=== PATIENT | male | born 1990 | race American Indian/Alaskan Native ===

== ENCOUNTER 2023-10-07 20:25 | Emergency (ER) | payer SELFPAY ==
[2023-10-07 20:39] LABS: BASOPHILS ABSOLUTE AUTO 0.1 K/mm3 (0.0-0.2); BASOPHILS PERCENT AUTO 0.4 % (0.0-1.0); EOSINOPHILS ABSOLUTE AUTO 0.1 K/mm3 (0.0-0.4); EOSINOPHILS PERCENT AUTO 0.6 % (0.0-6.0); HEMATOCRIT 42.5 % (42.0-52.0); HEMOGLOBIN 14.8 gm/dl (14.0-18.0); IMMATURE GRAN ABSOLUTE AUTO 0.12 K/mm3 (0.00-0.05); IMMATURE GRAN PERCENT AUTO 0.6 % (0.0-0.4); LYMPHOCYTES ABSOLUTE AUTO 2.1 K/mm3 (1.0-4.8); MEAN CORPUSCULAR HEMOGLOBIN 33.2 pg (28.0-32.0); MEAN CORPUSCULAR HGB CONC 34.8 g/dl (32.0-36.0); MEAN CORPUSCULAR VOLUME 95.3 fl (83.0-99.0); MEAN PLATELET VOLUME 8.5 fl (9.4-12.4); MONOCYTES ABSOLUTE AUTO 1.2 K/mm3 (0.0-0.8); MONOCYTES PERCENT AUTO 6.3 % (0.0-8.0); NEUTROPHILS ABSOLUTE AUTO 15.1 K/mm3 (1.8-7.7); NEUTROPHILS PERCENT AUTO 81.1 % (41.0-71.0); PLATELET COUNT,PLT 393 K/mm3 (150-400); RED BLOOD CELL COUNT 4.46 M/mm3 (4.52-5.90); WHITE BLOOD CELL COUNT,WBC 18.67 K/mm3 (3.9-11.3)
[2023-10-07] MEDS: Diphtheria,Pertussis(Acell),Tetanus Vaccine 0.5 ML Syringe IM ONE (20:47)
[2023-10-07] MEDS: Dextrose 5%-0.9% NaCl 1,000 ML IV SCH (20:47)
[2023-10-07] MEDS: Metoclopramide 10 MG/2 ML SDV IVPUSH ONE (20:49)
[2023-10-07] MEDS: HYDROmorphone 1 MG/ML Syringe IVPUSH ONE (20:49)
[2023-10-07 20:58] LABS: INR 1.08; PROTHROMBIN TIME 11.4 SECONDS (9.7-12.0)
[2023-10-07 20:59] LABS: PTT,PARTIAL THROMBOPLSTIN TIME 27.6 SECONDS (21.7-31.4)
[2023-10-07 21:00] LABS: A/G RATIO 1.2 (1-2); ALBUMIN 4.2 g/dl (3.4-5.0); ANION GAP 15.7 (5-15); BILIRUBIN TOTAL 0.6 mg/dL (0.2-1.0); BUN/CREATININE RATIO 7.3 (14-18); C-REACTIVE PROTEIN 0.05 mg/dL (<0.30); CALCIUM 8.2 mg/dL (8.5-10.1); CREATININE 1.1 mg/dL (0.7-1.3); EST CRCL DRUG DOSING (CG) 119.46 mL/min; ETHANOL BLOOD MEDICAL 0.29 gm% (0.00); MAGNESIUM 2.2 mg/dL (1.8-2.4); POTASSIUM,K 4.7 mEq/L (3.5-5.1); PROTEIN TOTAL,TP 7.8 g/dl (6.4-8.2)
[2023-10-07] MEDS: Iopamidol 612 MG/ML 30 ML SDV IVPUSH ONE (21:34)
[2023-10-07] MEDS: Sodium Chloride 0.9% 10 ML Syringe FLUSH ONE (21:34)
[2023-10-07] MEDS: Iopamidol 612 MG/ML 100 ML Bottle IVPUSH ONE (21:34)
[2023-10-08] MEDS: Lactated Ringers 1,000 ML IV SCH (02:20)
[2023-10-08] MEDS: HYDROmorphone 1 MG/ML Syringe IVPUSH ONE (02:21)
[2023-10-08] MEDS: Metoclopramide 10 MG/2 ML SDV IVPUSH ONE (02:21)
[2023-10-08] MEDS: HYDROmorphone 0.5 MG/0.5 ML Syringe IVPUSH ONE (05:20)
== END 2023-10-08 10:45 | disposition home or self-care (01) ==
LOC: JD.ED 20:25
DX: S43.102A Unspecified dislocation of left acromioclavicular joint, initial encounter (principal); S22.089A Unspecified fracture of T11-T12 vertebra, initial encounter for closed fracture; S30.0XXA Contusion of lower back and pelvis, initial encounter; S00.81XA Abrasion of other part of head, initial encounter; F10.120 Alcohol abuse with intoxication, uncomplicated; Z79.899 Other long term (current) drug therapy; Z23 Encounter for immunization; Y90.9 Presence of alcohol in blood, level not specified; V86.55XA Driver of 3- or 4- wheeled all-terrain vehicle (ATV) injured in nontraffic accident, initial encounter; Y93.89 Activity, other specified
CPT/HCPCS: 36415; 70450; 71260; 72125; 72128; 72131; 73030; 74177; 80053; 80307; 83690; 83735; 85025; 85610; 85730; 86140; 90471; 90715; 96361; 96374; 96375; 96376; 99285; J1170; J2765; J3490; J7042; J7120; Q9967